=== PATIENT | female | born 1970 | race American Indian/Alaskan Native ===

== ENCOUNTER 2016-11-19 05:49 | Observation (INO) | payer MEDICAID, OTHER ==
[2016-11-17 11:05] LABS: Basophils % (Auto) 0.4 % (0.0-1.8); Hematocrit 38.1 % (30.3-42.9); Hemoglobin 12.3 gm/dl (10.1-14.3); Mean Corpuscular HGB Conc 32 % (30-34); Mean Corpuscular Hemoglobin 28 pg (28-32); Mean Corpuscular Volume 86 fl (79-97); Platelet Count 241 K/mm3 (140-440); Red Blood Count 4.42 M/mm3 (3.65-5.03); Red Cell Distribution Width 15.1 % (13.2-15.2); White Blood Count 10.9 K/mm3 (4.5-11.0)
[2016-11-19] MEDS ORDERED: NACL BACTERIOSTATIC INFILTRATI ONE (06:39)
[2016-11-19] MEDS ORDERED: NACL 0.9% 1000 ML 1,000 ML ONE (06:40)
--- NOTE | 2016-11-19 07:07 | History and Physical Report ---
History of Present Illness Date of examination: 11/19/16 Date of admission: 11/19/2016 Chief complaint: heavy menses History of present illness: 45y/o with a history of worsening in her menses. The patient experiences heavy bleeding with the passage of clots. She also notes considerable discomfort. She had findings of a small left ovarian cyst measuring 2cm. She has failed medical management and elects for definitive surgical management. 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 Social history: - Obstetrical History : 4 Para: 3 Hx # Term Pregnancies: 3 Number of Pregnancies: 0 Spontaneous Abortions: 0 Induced : 1 Number of Living Children: 3 Medications and Allergies Allergies Allergy/AdvReac Type Severity Reaction Status Date / Time No Known Allergies Allergy Verified 11/12/16 16:42 Home Medications Medication Instructions Recorded Confirmed Last Taken Type No Known Home Medications [No 11/12/16 11/12/16 Unknown History Reported Home Medications] Review of Systems All systems: negative Genitourinary: vaginal bleeding, pelvic pain - Vital Signs Vital signs: Vital Signs Temp Pulse Resp BP 99.5 F 76 14 130/50 11/17/16 10:35 11/17/16 10:35 11/17/16 10:35 11/17/16 10:35 Temp Pulse Resp BP Pulse Ox 99.5 F 76 14 130/50 11/17/16 10:35 11/17/16 10:35 11/17/16 10:35 11/17/16 10:35 - Physical Exam Breasts: Positive: deferred Cardiovascular: Regular rate Lungs: Positive: Clear to auscultation Abdomen: Positive: normal appearance Results Result Diagrams: 11/17/16 10:45 All other labs normal. Assessment and Plan - Patient Problems (1) Menorrhagia Current Visit: Yes Status: Acute Qualifiers: Menorrahagia type: M Plan to address problem: proceed with a robotic hysterectomy and bilateral salpingectomy (2) Dysmenorrhea Current Visit: Yes Status: Acute
--- NOTE | 2016-11-19 07:18 | Anesthesia Day of Surgery ---
Anesthesia Day of Surgery - Day of Surgery Patient Examined: Yes Patient H&P Reviewed: Yes Patient is NPO: Yes
--- NOTE | 2016-11-19 07:18 | Anesthesia Consultation ---
Anesthesia Consult and Med Hx Date of service: 11/19/16 - Airway Anesthetic Teeth Evaluation: Good ROM Head & Neck: Adequate Mental/Hyoid Distance: Adequate Mallampati Class: Class II Intubation Access Assessment: Probably Good - Pulmonary Exam CTA: Yes - Cardiac Exam Cardiac Exam: RRR - Pre-Operative Health Status ASA Pre-Surgery Classification: ASA2 Proposed Anesthetic Plan: General - Pulmonary Hx Smoking: Yes - Cardiovascular System Hx Heart Murmur: Yes - Central Nervous System Hx Seizures: Yes (x1 only due to a medicine received) Hx Psychiatric Problems: No - Other Systems Hx Alcohol Use: Yes (occas) Hx Cancer: No
[2016-11-19] MEDS ORDERED: XYLOCAINE 1% 20 mL ONE (07:36)
[2016-11-19] MEDS ORDERED: MARCAINE-EPI/PF 0.5%-1:200,000 INFILTRATI ONE (07:36)
[2016-11-19] MEDS ORDERED: DECADRON ONE ×2 (07:36→09:56)
[2016-11-19] MEDS ORDERED: NEOSPORIN GU IR ONE ×2 (07:37→09:45)
[2016-11-19] MEDS ORDERED: SUBLIMAZE ONE (07:49)
[2016-11-19] MEDS ORDERED: DIPRIVAN 10 MG/ML IV ONE (07:49)
[2016-11-19] MEDS ORDERED: XYLOCAINE MPF 2% ONE (07:49)
[2016-11-19] MEDS ORDERED: NEO SYNEPHRINE/NS Syringe(OR USE) IV ONE (08:00)
[2016-11-19] MEDS ORDERED: SUBLIMAZE IV ONE (08:00)
[2016-11-19] MEDS ORDERED: NACL 0.9% 1000 ML 1,000 ML IV SCH (08:00)
[2016-11-19] MEDS ORDERED: VERSED IV NR (08:00)
[2016-11-19] MEDS ORDERED: NEURONTIN PO NR (08:00)
[2016-11-19] MEDS ORDERED: ANCEF/STERILE WATER 2 GM/20 ML 2 GM/20 ML SYRINGE IV SCH (08:00)
[2016-11-19] MEDS ORDERED: PEPCID PO NR (08:00)
[2016-11-19] MEDS ORDERED: FLAGYL 500 MG/100 ML 500 MG/100 ML BAG IV ONE (08:20)
[2016-11-19] MEDS ORDERED: NACL 0.9% IR ONE (09:45)
[2016-11-19] MEDS ORDERED: ROBINUL ONE ×2 (09:56→10:29)
[2016-11-19] MEDS ORDERED: ZEMURON IV ONE (09:56)
[2016-11-19] MEDS ORDERED: BLOXIVERZ ONE (09:56)
[2016-11-19] MEDS ORDERED: DILAUDID ONE ×2 (09:56→10:55)
[2016-11-19] MEDS ORDERED: ZOFRAN ONE (09:56)
--- NOTE | 2016-11-19 09:58 | Operative Report ---
Operative Report Operative Report: Date of surgery: 11/19/2016 Preoperative diagnoses: Menorrhagia; dysmenorrhea Postoperative diagnoses: Same as above; left ovarian cyst Procedure: Robotic hysterectomy; bilateral salpingectomy; left ovarian cystectomy Surgeon: Georgina Alexander M.D. Sky Cap:Catrachito Villeda Anesthesia: Gen. endotracheal anesthesia Estimated blood loss: 50 mL Pathology: Uterus, cervix, bilateral tubes, left ovarian cyst Indication: 46-year-old 013 with a history of menorrhagia and dysmenorrhea. The patient failed medical management and elected to undergo definitive surgical management. Procedure: The patient was taken to the operating room and given general endotracheal anesthesia without complication. She is prepped and draped in a normal sterile fashion. A bivalve speculum was placed in the patient's vagina and a single- tooth tenaculum placed on the anterior lip of the cervix. The uterus was sounded with the uterine sound. A RIGID uterine manipulator was placed in the bivalve speculum was then removed. Attention was then turned to the patient's abdomen where a millimeter supra umbilical skin incision was then made. A Veress needle was placed and peritoneal entry was verified water-filled syringe. Insufflation of the peritoneal cavity was performed with CO2 gas. The 12 mm trocar was then placed under direct visualization. An additional 8 mm trocar was placed on the patient's left and right lateral side just opposite of the supraumbilical trocar. An additional 5 mm right lateral trocar was then placed as the accessory port. The patient was then placed in steep Trendelenburg. The da Paul robot was then engaged. A fenestrated forcep was placed in arm 2 and a vessel sealer was placed in arm 1. The surgeon then transferred to the surgical console. The mesosalpinx was then isolated on the right. The vessel sealer was used to coagulate the mesosalpinx which was then transected. The tube was transected from the ovary. The tubo-ovarian ligament was then coagulated and transected. The round ligament was then coagulated and transected also. The vesicouterine peritoneum was then entered from the patient 's right side. The uterine vessels were then coagulated with the vessel sealer. The vessels were then transected . Attention was then turned to the patient's left side where the tubo-ovarian ligament and mesosalpinx were again isolated coagulated and transected. The vesical peritoneum was then entered from the left and joined in the midline. Peritoneum was reflected off of the lower uterine segment. Uterine vessels were then coagulated and then transected. The blood supply to the uterus was adequately contained, a posterior colpotomy was made. The V care ring was visualized. Posterior colpotomy was created with the monopolar scissors. The incision was continued circumferentially until anterior colpotomy was made. The cervix and uterus were amputated from the vaginal cuff. The uterus was then removed along with the tubes bilaterally through the vagina and a warm laparotomy sponge was placed and maintain the pneumoperitoneum. The vaginal cuff was then closed in a running fashion with V lock suture. The left ovary was then grasped with the plan is treated for sepsis. The monopolar scissors were used to excise a 2 cm ovarian cyst. The cyst specimen was removed through the trocar. Irrigation of the pelvis was performed. Tisseel was applied to the incision. The 8 mm trochars were then removed. The supraumbilical 12 mm trocar site was closed with the Kenton Rodriguez device. The skin was then reapproximated with 4-0 Monocryl. The tissue was sent to pathology which included the cervix and uterus. The patient was then successfully extubated. She was then taken to the recovery room in stable condition. All sponge laps and needle counts were correct x2.
[2016-11-19] MEDS ORDERED: MORPHINE PCA 30MG/30ML IV SCH (10:30)
[2016-11-19] MEDS ORDERED: TORADOL IV PRN (10:30)
[2016-11-19] MEDS: DILAUDID IV PRN ×5 (10:35→14:00)
[2016-11-19] MEDS ORDERED: PERCOCET 5/325 PO PRN (11:00)
[2016-11-19] MEDS ORDERED: MILK OF MAGNESIA PO PRN (11:00)
[2016-11-19] MEDS ORDERED: ZOFRAN IV PRN ×2 (11:00)
[2016-11-19] MEDS ORDERED: NARCAN 0.4 MG/1 ML IV PRN (11:00)
[2016-11-19] MEDS ORDERED: MOTRIN PO PRN (11:00)
--- NOTE | 2016-11-19 13:28 | Admit Criteria Form ---
Admission Criteria Documentation: AMBULATORY SURGERY EXCEPTION CRITERIA Ambulatory Surgery Exception Criteria ( Place 'X' for any and all applicable criteria): Surgery or procedure performed on ambulatory basis may require inpatient stay for[A] ANY ONE of the following(1)(2)(3)(4)(5)(6)(7)(8)(9): [X] I. A preoperative situation, condition, or finding that warrants inpatient stay as indicated by ANY ONE of the following: [X] a) Inpatient care needed because of severity of a disease or condition rather than the surgery (eg, severe cardiac or respiratory disease, severe infection) (15) (16 ) (17) (18) [] b) Emergent procedure (eg, angioplasty for acute ischemia)(19) [] c) Complex surgical approach or situation as indicated by ANY ONE of the following(3): [] i) Open approach needed instead of usual endoscopic, transcatheter, or other less invasive procedure [] ii) Difficult approach because of previous operation [] iii) Airway monitoring required after open neck procedures(20)(21) [] iv) Large mass requiring unusually extensive dissection [] v) Additional complicating feature requiring inpatient care (eg, drain management)(22(23): [] d) Major surgery in a pt with high anesthetic risk as indicated by ANY ONE of the following (2)(3)(5)(7)(8): [] i) ASA risk class III or higher (severe systemic disease impairing function) [D] [] ii) Advanced age (eg, older than 85 years)(14)(24) [] iii) Symptomatic heart failure(25) [] iv) Symptomatic asthma or COPD(8)(21) [] v) Morbid obesity with hemodynamic or respiratory problems(20)( 21)(26)(27) [] vi) Obstructive sleep apnea(20)(21) [] vii) Former premature infants who are younger than 60 weeks [] viii) High risk for severe postoperative abnormalities (eg, severe postoperative hypocalcemia after parathyroidectomy for severe hyperparathyroidism)(27)( 28) [] ix) Unstable angina(25) [] e) Drug-related risk requiring inpatient stay as indicated by ANY ONE of the following(5)(10)(14)(32)(33) [] i) Procedure requires discontinuing drugs or other therapy (eg , antiarrhythmic medication, antiseizure medication), which necessitates inpatient observation or treatment.(18)(31) [] ii) Major surgery and high risk drug use as indicated by ANY ONE of the following: [] 1) Active abuse of cocaine or similar drug [] 2) Monoamine oxidase inhibitor use [] 3) Other drug identified as posing risk [] f) Inadequate outpatient care situation as indicated by ANY ONE of the following(5)(10)(14)(32)(33) [] i) Patient lives remote from medical facility and procedure has urgent complication potential, and temporary nearby residence cannot be arranged [] ii) Patient will have postprocedure incapacitation and inadequate assistance at home, or alternative level of care cannot be arranged. [] iii) Patient will have long general anesthesia or procedure side effect resolution time, and competent person to stay with patient on first postoperative night at home or alternative level of care cannot be arranged. []iv) Other inadequate outpatient situation that cannot be handled by other means [] II. A perioperative event, condition, or finding that warrants inpatient stay as indicated by ANY ONE of the following (1)(2)(3): [] a) Inadequate physiologic recovery: cardiovascular, respiratory, or hemodynamic status not normal or near preoperative baseline(18) [] b) Hemodynamic instability [] c) Patient not alert with near normal or baseline mental status [] d) Temperature not normal or as expected and not appropriate for outpatient treatment of condition [] e) Ambulatory or appropriate activity level status not yet achieved post procedure [E](34)(35)(36) [] f) Operative site not appropriate (eg, unexpected or excessive drainage or bleeding) [] g) Postoperative effects not resolved or adequately managed (eg, significant pain or vomiting not appropriate for outpatient or next level of care)(10)(12) [] h) Complicating features requiring inpatient care as indicated by ANY ONE of the following(37): [] i) Severe complications of procedure (eg, bowel injury, airway compromise, vascular injury,severe hemorrhage) [] ii) Extensive (eg, dissection far beyond usual scope of procedure ) or prolonged (eg, 120 minutes beyond usual) surgery needed requiring inpatient postoperative care [] iii) Conversion to an open or complex procedure that requires inpatient care (eg, open vs laparoscopic cholecystectomy, abdominal vs vaginal hysterectomy)(38) [] iv) Comorbid condition or test result identified during or post procedure that requires inpatient care (7) [] v) Malignant hyperthermia(30) [] vi) Other complicating feature requiring inpatient care(22)(23) Inpatient stay may be needed until ALL of the following are present (1)(2)(3)(4) (5)(6)(10)(14)(33)(40): []a) Physiologic recovery: cardiovascular, respiratory, and hemodynamic status normal or near preoperative baseline []b) Hemodynamic stability []c) Patient alert, with near normal or baseline mental status []d) Temperature appropriate: patient afebrile or temperature appropriate for outpt treatment of condition []e) Activity level appropriate: ambulatory or appropriate activity level post procedure []f) Operative site appropriate as indicated by ALL of the following: []i) Site dry or with expected drainage []ii) Any blood noted is as expected for procedure. []g) Postoperative effects resolved or managed as indicated by ALL of the following: []i) Pain management appropriate for outpatient (or next level of) care(10) []ii) Minimal nausea and vomiting: if present, successfully treated with oral medication(12) []iii) Headache, dizziness, or drowsiness (if present) are mild. []h) Voiding status acceptable as indicated by ANY ONE of the following: []i) Voiding spontaneously []ii) No voiding but instructions given for follow-up in 6 to 8 hours []iii) Urinary catheter in place, and instructions given for follow-up []i) Complicating features requiring inpatient care manageable at a lower level of care(37) []j) Comorbid conditions manageable at a lower level of care(37) The original [employer] content created by [employer] has been revised. The portions of the content which have been revised are identified through the use of italic text or in bold, and [employer] has neither reviewed nor approved the modified material. All other unmodified content is copyright [employer]. Please see references footnoted in the original [employer] edition 2016
[2016-11-19] MEDS: ANCEF/NS 1 GM/50 ML 1 GM/50 ML BAG IV SCH (15:57)
[2016-11-19] MEDS ORDERED: AMBIEN PO PRN (16:58)
--- NOTE | 2016-11-19 17:03 | Progress Note ---
Assessment and Plan - Patient Problems (1) Menorrhagia Current Visit: Yes Status: Acute Qualifiers: Menorrahagia type: M Plan to address problem: doing well clear diet tonight advance to regular in am schedule postoperative f/u in 4 weeks (2) Dysmenorrhea Current Visit: Yes Status: Acute Subjective - Subjective Date of service: 11/19/16 Interval history: Patient states her pain is controlled. She feels hungry. Reports problems with sleeping. Objective - Vital Signs Latest vital signs: Vital Signs Temp Pulse Pulse Resp BP BP Pulse Ox 11/19/16 15:45 16 11/19/16 14:00 16 11/19/16 11:45 98.5 F 88 16 110/55 11/19/16 11:15 97.0 F L 90 16 114/67 98 11/19/16 11:00 86 16 120/68 99 11/19/16 10:45 82 18 120/72 99 11/19/16 10:30 91 H 20 122/63 98 11/19/16 10:20 94 H 24 126/63 100 11/19/16 10:15 97 H 24 126/72 100 11/19/16 10:11 97.2 F L 100 H 24 119/50 98 11/19/16 07:55 93 H 14 134/78 99 11/19/16 07:50 88 14 128/76 99 11/19/16 07:45 82 14 123/78 100 11/19/16 07:40 82 16 131/79 100 11/19/16 07:35 85 26 H 142/67 100 11/19/16 07:05 98.5 F 65 18 124/58 98 11/19/16 06:25 98.5 F 65 18 124/58 98 Intake and Output 11/19/16 11/19/16 11/19/16 06:59 14:59 22:59 Intake Total 900 500 250 Output Total 320 Balance 900 180 250 Intake: IV 900 500 250 D5lr 1,000 ml @ 125 mls/ 250 250 hr IV DIRECT MYRTLE Rx#: [id number] Output: Urine 320 Other: Voiding Method Indwelling Catheter
[2016-11-19] MEDS: TORADOL IV SCH ×2 (17:28→23:00)
[2016-11-19] MEDS: D5LR 1,000 ML IV SCH (21:03)
[2016-11-20] MEDS: ANCEF/NS 1 GM/50 ML 1 GM/50 ML BAG IV SCH (02:12)
[2016-11-20 04:45] LABS: Hematocrit 34.5 % (30.3-42.9); Hemoglobin 11.1 gm/dl (10.1-14.3)
[2016-11-20] MEDS: TORADOL IV SCH ×2 (04:59→10:28)
[2016-11-20] MEDS: D5LR 1,000 ML IV SCH (05:00)
--- NOTE | 2016-11-20 08:19 | Progress Note ---
Assessment and Plan A: POD#1 s/p robotic hysterectomy P: Routine advances. Anticipate discharge later today. Subjective - Subjective Date of service: 11/20/16 Principal diagnosis: s/p robotic hysterectomy Interval history: Pt does not want to move and says she has not slept all night. 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 Patient reports: no voiding normally (acosta in place ), no flatus, no bowel movement, no ambulating normally Objective - Vital Signs Latest vital signs: Vital Signs Temp Pulse Pulse Resp BP BP Pulse Ox 11/20/16 06:32 98.7 F 79 18 114/66 11/20/16 04:59 18 11/20/16 02:15 18 11/20/16 00:00 98.5 F 93 H 16 125/72 11/19/16 23:00 18 11/19/16 22:00 18 11/19/16 20:55 98.1 F 84 15 135/72 11/19/16 18:05 16 11/19/16 18:00 98.5 F 73 18 136/80 11/19/16 15:45 16 11/19/16 14:00 16 11/19/16 11:45 98.5 F 88 16 110/55 11/19/16 11:15 97.0 F L 90 16 114/67 98 11/19/16 11:00 86 16 120/68 99 11/19/16 10:45 82 18 120/72 99 11/19/16 10:30 91 H 20 122/63 98 11/19/16 10:20 94 H 24 126/63 100 11/19/16 10:15 97 H 24 126/72 100 11/19/16 10:11 97.2 F L 100 H 24 119/50 98 Intake and Output 11/19/16 11/20/16 11/20/16 22:59 06:59 14:59 Intake Total 745 1855 Output Total 600 1200 300 Balance 145 655 -300 Intake: IV 625 1375 ANCEF/NS 1 GM/50 ML 1 gm 50 In 50 ml @ 100 mls/hr IV Q8H MYRTLE Rx#:[id number] D5lr 1,000 ml @ 125 mls/ 575 1375 hr IV DIRECT MYRTLE Rx#: [id number] Oral 120 Intake, Free Water 480 Output: Urine 600 1200 300 Indwelling Catheter 400 600 300 Uretheral (Acosta) 200 600 Other: Total, Intake Amount 120 Total, Output Amount 400 600 300 Voiding Method Indwelling Catheter - Exam Breasts: Present: deferred Cardiovascular: Present: Regular rate Lungs: Present: Clear to auscultation Abdomen: Present: soft (obese ) Extremities: Present: normal Incision: Present: intact
--- NOTE | 2016-11-20 08:31 | Discharge Summary ---
Providers - Providers Date of Admission: 11/19/16 09:59 Date of discharge: 11/20/16 Attending physician: EARL QUACH Primary care physician: BRIGHT MENDOZA Hospitalization Reason for admission: other (Dysfunctional Uterine Bleeding ) Procedure details: Please see operative note Hospital course: Pt underwent robotic hysterectomy which she tolerated well. She met discharge criteria on POD#1 and will follow up in the office in [address] Quach. Condition at discharge: Stable Disposition: DC-01 TO HOME OR SELFCARE - Discharge Diagnoses (1) Obesity Status: Acute Qualifiers: Obesity type: O Obesity classification: O Serious obesity comorbidity presence: S Body mass index: BMI 31.0-31.9 (2) Dysmenorrhea Status: Acute (3) Menorrhagia Status: Acute Qualifiers: Menorrahagia type: M Plan - Discharge Medications Prescriptions: Fluconazole [Diflucan] 200 mg PO QDAY #7 bottle Ibuprofen [Motrin] 800 mg PO Q8HR PRN #60 tablet PRN Reason: Pain Oxycodone HCl/Acetaminophen [Percocet 7.5/325 mg] 1 each PO Q6HR PRN #45 tablet PRN Reason: Pain Sulfamethoxazole/Trimethoprim [Bactrim DS TAB] 1 each PO BID #20 tablet Zolpidem [Ambien] 10 mg PO QHS PRN #30 tab PRN Reason: Insomnia - Provider Discharge Summary Activity: routine, no sex for 6 weeks, no heavy lifting 4 weeks, no strenuous exercise Diet: routine Instructions: routine Additional instructions: [] Smoking cessation referral if applicable(refer to patient education folder for contact #) [] Refer to [facility] Booklet Call your doctor immediately for: * Fever > 100.5 * Heavy vaginal bleeding ( >1 pad per hour) * Severe persistent headache * Shortness of breath * Reddened, hot, painful area to leg or breast * Drainage or odor from incision. * Keep incision clean and dry at all times and follow doctor's instructions regarding bathing/showering - Follow up plan Follow up: BRIGHT MENDOZA MD [Primary Care Provider] - 7 Days EARL QUACH MD [Staff Physician] - 12/17/16 (call for appt on this date with Dr Quach )
[2016-11-20] MEDS ORDERED: MILK OF MAGNESIA PO SCH (09:00)
--- NOTE | 2016-11-20 17:49 | Event Note ---
Date: 11/20/16 On-call MD mendoza by JADA Patel because pt and her mother were arguing about the pt 's ability to go home today. She was offered the ability to stay tonight and leave tomorrow morning but the patient now insists on leaving tonight.
[2016-11-20 18:53] VITALS: BP 104/80
== END 2016-11-20 18:25 | disposition home or self-care (01) ==
LOC: OR 05:49 → OB 09:59
PROVIDERS: ADMIT Obstetrics & Gynecology; ATTEND Obstetrics & Gynecology
DX: N92.0 Excessive and frequent menstruation with regular cycle (principal); N94.6 Dysmenorrhea, unspecified; E66.9 Obesity, unspecified; Z87.891 Personal history of nicotine dependence; Z98.51 Tubal ligation status
CPT/HCPCS: 36415; 58571; 64450; 84703; 85014; 85018; 85025; 86850; 86900; 86901; 88305; 88307; 96365; 96375; 96376; C9250; G0378; J0690; J1100; J1170; J1885; J2250; J2270; J2370; J2405; J2704; J2710; J3010; J7030; J7121; S2900; 88304